=== PATIENT | female | born 1955 | race Caucasian/White ===

== ENCOUNTER 2017-04-08 12:19 | Observation (INO) | payer BC ==
[~2017-04-08] VITALS: Ht 167.6 cm; Wt 81.0 kg
[~2017-04-08 12:19] MED LIST: HYDROCORTISONE5 MG PO; KEFLEX500 MG PO; SYNTHROID75 MCG PO
[2017-04-08 13:33] LABS: BASOPHIL COUNT 0.1 K/uL (0-0.1); EOSINOPHIL (%) 3.3 % (0-5); EOSINOPHIL COUNT 0.2 K/uL (0-0.3); HEMATOCRIT 33.8 % (36.0-46.0); IMMATURE GRANULOCYTE (%) 0.2 % (0.0-0.7); INSTRUMENT ABS NEUTROPHIL CT 2.9 K/uL; LYMPHOCYTE COUNT 1.6 K/uL (1.0-2.8); MCH 33.1 PG (29.0-34.0); MCHC 35.5 G/DL (30.0-36.0); MCV 93.1 FL (83-99); MONOCYTE (%) 7.2 % (3-12); MONOCYTE COUNT 0.4 K/uL (0-0.8); NEUTROPHIL (%) 56.3 % (45-76); NEUTROPHIL COUNT 2.9 K/uL (1.8-6.4); PLATELET COUNT 206 K/uL (156-360); RBC DIS.WIDTH-CV 11.9 % (11.8-14.6); RBC DIS.WIDTH-SD 40.3 % (39-53); RED BLOOD COUNT 3.63 M/uL (3.80-5.20); WHITE BLOOD COUNT 5.1 K/uL (4.1-10.2)
[2017-04-08 13:39] LABS: INTER. NORMALIZED RATIO 1.1; PROTHROMBIN TIME 12.3 SEC (10.2-12.9)
[2017-04-08 13:41] LABS: PTT 35.3 SEC (25-37)
[2017-04-08 13:42] LABS: CHLORIDE 106 mEq/L (99-109); POTASSIUM 4.3 mEq/L (3.7-5.4); SODIUM 137 mEq/L (136-147)
[2017-04-08 13:43] LABS: MAGNESIUM 2.2 mg/dL (1.3-2.7)
[2017-04-08 13:44] LABS: GLUCOSE 90 mg/dL (70-99)
[2017-04-08 13:45] LABS: ANION GAP 8 MEQ/L (2-14)
[2017-04-08 13:48] LABS: GFR ESTIMATE (CALCULATED) > 59 mL/min/
[2017-04-08 13:49] LABS: UREA NITROGEN (BUN) 8 mg/dL (9-23)
[2017-04-08 13:54] LABS: TROP-I INTERPRETATION NEGATIVE; TROPONIN-I 0.03 ng/mL (0.0-0.30)
[2017-04-08 16:06] LABS: TROP-I INTERPRETATION NEGATIVE; TROPONIN-I 0.23 ng/mL (0.0-0.30)
[2017-04-08 18:22] VITALS: BP 185/93
[2017-04-08 20:00] VITALS: BP 151/80
[2017-04-08 22:07] LABS: TROP-I INTERPRETATION NEGATIVE; TROPONIN-I 0.12 ng/mL (0.0-0.30)
[2017-04-08 23:34] VITALS: BP 135/83
[2017-04-09 04:19] VITALS: BP 122/76
[2017-04-09 05:58] LABS: TROP-I INTERPRETATION NEGATIVE; TROPONIN-I 0.03 ng/mL (0.0-0.30)
[2017-04-09 08:34] VITALS: BP 134/72
[2017-04-09] MEDS ORDERED: ATORVASTATIN CA80 MG PO (13:22)
[2017-04-09] MEDS ORDERED: ASPIRIN81 M2 PO (13:23)
== END 2017-04-09 15:20 | disposition home or self-care (01) ==
LOC: EME 12:19 → EDOF 17:22 → 5WEST 17:22 → EDOF 17:22 → ENRESERV 17:23 → 5WEST 18:13
PROVIDERS: Emergency Medicine; Internal Medicine
DX: R07.9 Chest pain, unspecified (principal); R94.31 Abnormal electrocardiogram [ECG] [EKG]; R03.0 Elevated blood-pressure reading, without diagnosis of hypertension; E78.5 Hyperlipidemia, unspecified; E03.9 Hypothyroidism, unspecified; E27.40 Unspecified adrenocortical insufficiency; Z79.52 Long term (current) use of systemic steroids; Z82.49 Family history of ischemic heart disease and other diseases of the circulatory system; Z88.1 Allergy status to other antibiotic agents; Z88.8 Allergy status to other drugs, medicaments and biological substances
CPT/HCPCS: 71010; 80048; 83735; 84484; 85025; 85379; 85610; 85730; 93005; 99281; 99285; G0378

== ENCOUNTER 2017-04-18 19:20 | Emergency (ER) | payer BC ==
[~2017-04-18] VITALS: Ht 167.6 cm; Wt 70.6 kg
[~2017-04-18 19:20] MED LIST changes: +ASPIRIN81 M2 PO; +ATORVASTATIN CA80 MG PO
[2017-04-18 20:06] LABS: HEMATOCRIT 33.9 % (36.0-46.0); MCH 32.9 PG (29.0-34.0); MCHC 35.7 G/DL (30.0-36.0); MCV 92.1 FL (83-99); MEAN PLAT.VOLUME 10.9 uM^3 (9.5-12.4); PLATELET COUNT 212 K/uL (156-360); RBC DIS.WIDTH-CV 11.8 % (11.8-14.6); RBC DIS.WIDTH-SD 39.7 % (39-53); RED BLOOD COUNT 3.68 M/uL (3.80-5.20); WHITE BLOOD COUNT 4.4 K/uL (4.1-10.2)
[2017-04-18 20:18] LABS: CHLORIDE 100 mEq/L (99-109); POTASSIUM 3.9 mEq/L (3.7-5.4); SODIUM 132 mEq/L (136-147)
[2017-04-18 20:19] LABS: GLUCOSE 130 mg/dL (70-99)
[2017-04-18 20:21] LABS: ANION GAP 8 MEQ/L (2-14)
[2017-04-18 20:23] LABS: GFR ESTIMATE (CALCULATED) > 59 mL/min/
[2017-04-18 20:24] LABS: UREA NITROGEN (BUN) 12 mg/dL (9-23)
[2017-04-18 20:27] LABS: TROP-I INTERPRETATION NEGATIVE; TROPONIN-I < 0.01 ng/mL (0.0-0.30)
[2017-04-18 21:55] LABS: TOTAL BILIRUBIN 0.5 mg/dL (0.0-1.0)
[2017-04-18 21:56] LABS: ALKALINE PHOSPHATASE 76 IU/L (3-129)
[2017-04-18 21:58] LABS: DIRECT BILIRUBIN 0.2 mg/dL (0.0-0.3)
[2017-04-18 21:59] LABS: LIPASE 20 U/L (1.0-51.0)
[2017-04-18 22:06] LABS: ADD MIUA? YES; BILIRUBIN NEGATIVE; BLOOD NEGATIVE; COLOR YELLOW ((YELLOW)); GLUCOSE (STRIP) NEGATIVE; KETONES NEGATIVE; LEUKOCYTES SMALL; NITRITE NEGATIVE; PROTEIN (STRIP) 30; SPECIFIC GRAVITY 1.023 (1.000-1.030)
[2017-04-18 22:14] LABS: BACTERIA NONE SEEN /HPF; EPITHELIAL CELLS NONE SEEN /HPF; MUCUS TRACE /LPF; RED BLOOD CELLS 0-5 /HPF (0-5); WHITE BLOOD CELLS 20-30 /HPF (0-5)
[2017-04-18 23:21] LABS: TROP-I INTERPRETATION NEGATIVE; TROPONIN-I < 0.01 ng/mL (0.0-0.30)
[2017-04-18 23:33] VITALS: BP 146/87
== END 2017-04-18 23:33 | disposition home or self-care (01) ==
LOC: RME 19:20 → EME 19:20 → RME 23:33
PROVIDERS: Physician Assistant
DX: R07.89 Other chest pain (principal); R10.13 Epigastric pain; K21.9 Gastro-esophageal reflux disease without esophagitis; Z88.2 Allergy status to sulfonamides; Z88.5 Allergy status to narcotic agent
CPT/HCPCS: 71020; 76705; 80048; 80076; 81003; 83690; 84484; 85027; 93005; 99281; 99285

== ENCOUNTER 2017-06-04 13:25 | Inpatient (IN) | payer BC ==
[~2017-06-04] VITALS: Ht 167.6 cm; Wt 71.0 kg
[2017-06-04 14:20] LABS: ALBUMIN 4.2 g/dL (3.2-4.8); CHLORIDE 84 mEq/L (99-109); POTASSIUM 3.7 mEq/L (3.7-5.4)
[2017-06-04 14:23] LABS: GLUCOSE 104 mg/dL (70-99); TOTAL PROTEIN 7.1 g/dL (6.4-8.3)
[2017-06-04 14:25] LABS: TOTAL BILIRUBIN 0.6 mg/dL (0.0-1.0)
[2017-06-04 14:26] LABS: ALKALINE PHOSPHATASE 83 IU/L (3-129); CREATININE 0.8 mg/dL (0.6-1.3); GFR ESTIMATE (CALCULATED) > 59 mL/min/; SODIUM 115 mEq/L (136-147)
[2017-06-04 14:27] LABS: UREA NITROGEN (BUN) 6 mg/dL (9-23)
[2017-06-04 14:28] LABS: AST (GOT) 18 IU/L (2-34)
[2017-06-04 14:29] LABS: ALT (GPT) 10 IU/L (3-49)
[2017-06-04 14:30] LABS: LIPASE 15 U/L (1.0-51.0)
[2017-06-04 14:56] LABS: HEMATOCRIT 34.6 % (36.0-46.0); MCH 32.7 PG (29.0-34.0); MCHC 37.6 G/DL (30.0-36.0); MCV 86.9 FL (83-99); PLATELET COUNT 290 K/uL (156-360); RBC DIS.WIDTH-CV 11.3 % (11.8-14.6); RBC DIS.WIDTH-SD 36.1 % (39-53); RED BLOOD COUNT 3.98 M/uL (3.80-5.20); WHITE BLOOD COUNT 4.1 K/uL (4.1-10.2)
[2017-06-04] MEDS ORDERED: KEFLEX500 MG PO (15:15)
[2017-06-04 15:24] LABS: TROP-I INTERPRETATION NEGATIVE; TROPONIN-I < 0.01 ng/mL (0.0-0.30)
[2017-06-04 17:00] LABS: APPEARANCE CLEAR ((CLEAR)); BILIRUBIN NEGATIVE; BLOOD NEGATIVE; COLOR STRAW ((YELLOW)); GLUCOSE (STRIP) NEGATIVE; KETONES 5; LEUKOCYTES NEGATIVE; NITRITE NEGATIVE; PROTEIN (STRIP) NEGATIVE; SPECIFIC GRAVITY 1.004 (1.000-1.030); UROBILINOGEN 0.2 MG/DL (0.2-1.0)
[2017-06-04 19:49] LABS: SODIUM 120 mEq/L (136-147)
[2017-06-04 19:50] LABS: GLUCOSE 112 mg/dL (70-99)
[2017-06-04 19:51] LABS: CHLORIDE 95 mEq/L (99-109)
[2017-06-04 19:54] LABS: CREATININE 0.7 mg/dL (0.6-1.3); GFR ESTIMATE (CALCULATED) > 59 mL/min/
[2017-06-04 19:55] LABS: UREA NITROGEN (BUN) 5 mg/dL (9-23)
[2017-06-05] VITALS (7 sets, daily range): BP systolic 109–139; BP diastolic 68–85
[2017-06-05 05:03] LABS: CHLORIDE 101 mEq/L (99-109); POTASSIUM 4.7 mEq/L (3.7-5.4)
[2017-06-05 05:05] LABS: GLUCOSE 88 mg/dL (70-99)
[2017-06-05 05:09] LABS: CREATININE 0.7 mg/dL (0.6-1.3); GFR ESTIMATE (CALCULATED) > 59 mL/min/
[2017-06-05 05:10] LABS: SODIUM 129 mEq/L (136-147); UREA NITROGEN (BUN) 5 mg/dL (9-23)
[2017-06-05 17:13] LABS: CHLORIDE 100 MEQ/L (99-109); SODIUM 128 MEQ/L (136-147)
[2017-06-05 17:19] LABS: CREATININE 0.8 MG/DL (0.6-1.3); GFR ESTIMATE (CALCULATED) > 59 mL/min/; GLUCOSE 94 mg/dL (70-99); UREA NITROGEN (BUN) 6 mg/dL (9-23)
[2017-06-05 17:32] LABS: TROP-I INTERPRETATION NEGATIVE; TROPONIN-I < 0.01 ng/mL (0.0-0.30)
[2017-06-06 01:27] LABS: TROP-I INTERPRETATION NEGATIVE; TROPONIN-I < 0.01 ng/mL (0.0-0.30)
[2017-06-06 04:38] VITALS: BP 120/68
[2017-06-06 05:29] LABS: TROP-I INTERPRETATION NEGATIVE; TROPONIN-I < 0.01 ng/mL (0.0-0.30)
[2017-06-06 06:06] LABS: CHLORIDE 100 MEQ/L (99-109); CREATININE 0.9 MG/DL (0.6-1.3); GFR ESTIMATE (CALCULATED) > 59 mL/min/; GLUCOSE 91 mg/dL (70-99); POTASSIUM 4.7 MEQ/L (3.7-5.4); SODIUM 131 MEQ/L (136-147); UREA NITROGEN (BUN) 7 mg/dL (9-23)
[2017-06-06 07:30] VITALS: BP 151/72
[2017-06-06 07:36] VITALS: BP 138/78
[2017-06-06] MEDS ORDERED: PANTOPRAZOLE SO40 MG PO (08:34)
== END 2017-06-06 11:30 | disposition home or self-care (01) | DRG 641 ==
LOC: EME 13:25 → 3EAST 15:30 → EDOF 15:30 → ENRESERV 15:49 → 3EAST 06-05 02:03
PROVIDERS: Family Medicine; Nurse Practitioner Family
DX: E87.1 Hypo-osmolality and hyponatremia (principal); E27.40 Unspecified adrenocortical insufficiency; E03.9 Hypothyroidism, unspecified; N39.0 Urinary tract infection, site not specified; R94.31 Abnormal electrocardiogram [ECG] [EKG]; K21.9 Gastro-esophageal reflux disease without esophagitis; E78.5 Hyperlipidemia, unspecified; M81.0 Age-related osteoporosis without current pathological fracture; Z87.440 Personal history of urinary (tract) infections
CPT/HCPCS: 71046; 80048; 80048 91; 80053; 81003; 83690; 84484; 85027; 87086; 93005; 99281; 99285; J7030